=== PATIENT | female | born 1935 | race Caucasian/White ===

== ENCOUNTER 2016-06-13 17:14 | Emergency (ER) ==
[2016-06-13 17:21] VITALS: BP 110/62; TEMP 98.8; BMI 24.0
[2016-06-13 18:04] LABS: ALBUMIN 3.2 g/dL (3.4-5.0); ALBUMIN/GLOBULIN RATIO 0.8; ANION GAP 19.7; BILIRUBIN,TOTAL 0.46 mg/dL (0.00-1.20); BUN/CREATININE RATIO 21.33; CALCIUM 9.2 mg/dL (8.2-10.2); CREATININE 2.39 mg/dL (0.60-1.30); POTASSIUM 4.7 mmol/L (3.5-5.10); TOTAL PROTEIN 7.2 g/dL (5.8-8.1)
[2016-06-13] MEDS ORDERED: HUMULIN R SUBCUT PRN (18:19)
--- NOTE | 2016-06-13 18:23 | ED.PDOC ---
General ED Provider: Dr. PATTI BAUTISTA Chief Complaint: Diabetes Stated Complaint: diabetes Time Seen by Physician: 17:17 (high blood sugar at [place]) Mode of Arrival: Ambulance Information Source: Patient, EMT, Assisted Living Exam Limitations: No limitations Primary Care Provider: MDAHAV TSAI Nursing and Triage Documentation Reviewed and Agree: Yes (on out pt steroids) Endocrine Complaint Exam - Diabetic Complication Complaint/Exam Symptoms Are: Still present Timing: Constant Initial Severity: Mild Current Severity: Mild Character: Alert Aggravating: Reports: Medication change Associated Signs and Symptoms: Denies: Decreased LOC, Polydipsia, Polyuria, Polyphagia, Weight loss, Abdominal pain, Nausea, Vomiting, Fever, Diaphoresis, Fruity breath Cardiac Risk Factors: Reports: Hypertension CVA Risk Factors: Reports: Hypertension Serious Bacterial Infection Risk Factors: Reports: None Related Surgical History: Reports: None Acetone on Breath: No Dry Mucous Membranes: No Kussmaul Respirations: No Meningeal Signs: No Focal Weakness: None Focal Sensory Loss: None Gait: Normal Nystagmus Present: No Gag Reflex Present: Yes Review of Systems - Review Of Systems Constitutional: Reports: No symptoms Eyes: Reports: No symptoms Ears, Nose, Mouth, Throat: Reports: No symptoms Respiratory: Reports: No symptoms Cardiac: Reports: No symptoms GI: Reports: No symptoms : Reports: No symptoms Musculoskeletal: Reports: No symptoms Skin: Reports: No symptoms Neurological: Reports: No symptoms Endocrine: Reports: No symptoms Hematologic/Lymphatic: Reports: No symptoms All Other Systems: Reviewed and Negative Past Medical History - Past Medical History Endocrine: Reports: DM 2, Hypothyroid Cardiovascular: Reports: Hypertension Respiratory: Reports: None Hematological: Reports: None Gastrointestinal: Reports: None Genitourinary: Reports: None Neuro/Psych: Reports: Anxiety Musculoskeletal: Reports: None Cancer: Reports: None Last Menstrual Period: n/a - Surgical History General Surgical History: Reports: Appendectomy, Back Surgery (x 2) - Family History Family History: Reports: Unknown - Social History Smoking Status: Never smoker Hx Substance Use: No Alcohol Screening: None Physical Exam - Physical Exam Appearance: Well-appearing, No pain distress, Well-nourished Eyes: JUAN CARLOS, EOMI, Conjunctiva clear ENT: Ears normal, Nose normal, Oropharynx normal Respiratory: Airway patent, Breath sounds clear, Breath sounds equal, Respirations nonlabored Cardiovascular: RRR, Pulses normal, No rub, No murmur GI/: Soft, Nontender, No masses, Bowel sounds normal, No Organomegaly Musculoskeletal: Normal strength, ROM intact, No edema, No calf tenderness Skin: Warm, Dry, Normal color Neurological: Sensation intact, Motor intact, Reflexes intact, Cranial nerves intact, Alert, Oriented Psychiatric: Affect appropriate, Mood appropriate Critical Care Note - Critical Care Note Total Time (mins): 0 Course - Course Hematology/Chemistry: 06/13/16 17:42 Orders, Labs, Meds: Lab Review 06/13/16 17:42 Sodium 138 Potassium 4.7 Chloride 101 Carbon Dioxide 22 L Anion Gap 19.7 BUN 51 H Creatinine 2.39 H Estimated GFR (MDRD) 19.00 BUN/Creatinine Ratio 21.33 Glucose 475 H Calcium 9.2 Total Bilirubin 0.46 AST 19 ALT 17 Alkaline Phosphatase 56 Total Protein 7.2 Albumin 3.2 L Globulin 4.0 Albumin/Globulin Ratio 0.80 Orders Category Date Time Status COMPREHENSIVE METABOLIC PANEL Stat LAB 06/13/16 17:42 Completed Insulin Regular, Human [Humulin R] MEDS 06/13/16 18:19 Ordered 5 unit SUBCUT PRN PRN Medications Generic Name Dose Route Start Last Admin Trade Name Freq PRN Reason Stop Dose Admin Insulin Human Regular 5 unit 06/13/16 18:19 Humulin R SUBCUT PRN PRN Hyperglycemica Vital Signs: Temp Pulse Resp BP Pulse Ox 06/13/16 17:17 98.8 F 76 16 110/62 95 Departure - Departure Time of Disposition: 18:22 Disposition: HOME SELF-CARE Discharge Problem: Hyperglycemia Instructions: Diabetic Hyperglycemia (ED) Condition: Good Pt referred to PMD for follow-up: No Additional Instructions: Please call your Family Physician as soon as possible to schedule a follow-up appointment. Allergies/Adverse Reactions: Allergies No Known Allergies Allergy (Unverified 12/02/12 10:30) Home Medications: Ambulatory Orders Aspirin [Aspirin Chewable] 81 mg PO DAILY 12/02/12 Esomeprazole Magnesium [Nexium] 40 mg PO DAILY 12/02/12 Ferrous Sulfate [Iron] 325 mg PO DAILY 12/02/12 Multivitamin 1 cap PO DAILY 12/02/12 Sitagliptin Phos/Metformin HCl [Janumet 50-1,000 mg Tablet] 50 - 1,000 mg PO BID 12/02/12 [place]-3S/Dha/Epa/Fish Oil/D3 [Fish Yrb-Auzmq-2-Vit D Softgel] 1 each PO BS 12/03 Canagliflozin [Invokana] 100 mg PO AC 11/06/15 Levothyroxine Sodium [Synthroid] 75 mcg PO QDAC 11/06/15 Rosuvastatin Calcium [Crestor] 10 mg PO BEDTIME 11/06/15 Vit C/Vit E/Lutein/Min/[place]-3 [Ocuvite Softgel] 1 tab PO DAILY 11/06/15 Cephalexin [Keflex] 500 mg PO Q12HR 06/13/16 Glucosamine HCl/Ch[place]r [place]anca A Na [Osteo Bi-Flex Caplet] 1 each PO DAILY 06/13/16 Olmesartan/Hydrochlorothiazide [Benicar Hct 40-25 mg Tablet] 1 each PO DAILY 03/20 Prednisone 10 mg PO BIDWM 06/13/16
[2016-06-13] MEDS ORDERED: HUMULIN R ONE (18:55)
== END 2016-06-13 19:06 | disposition home or self-care (01) ==
LOC: ED 17:14
DX: E11.65 Type 2 diabetes mellitus with hyperglycemia (principal); I10 Essential (primary) hypertension; E03.9 Hypothyroidism, unspecified; Z79.899 Other long term (current) drug therapy
CPT/HCPCS: 36415; 80053; 96372; 99282

== ENCOUNTER 2016-06-22 11:56 | Outpatient (CLI) ==
[2012-12-03 08:34] VITALS: TEMP 97.2
--- NOTE | 2016-06-22 12:26 | DI ---
EXAM: Chest two views HISTORY: Acute bronchitis COMPARISON: 07/19/1928 TECHNIQUE: Two views of the chest were performed FINDINGS: The lungs are clear, excepting for granulomatous calcification. There is no pleural effu gerardo or pneumothorax. The heart is normal in size. The mediastinal contour is normal, noting ather osclerosis. There are no acute abnormalities of the bones. IMPRESSION: No acute cardiopulmonary process.
== END 2016-06-22 11:57 | disposition home or self-care (01) ==
LOC: RAD 11:56
PROVIDERS: ATTEND Emergency Medicine
DX: J20.9 Acute bronchitis, unspecified (principal)

== ENCOUNTER 2016-08-31 14:19 | Outpatient (CLI) ==
[2012-12-03 08:34] VITALS: TEMP 97.2
[2016-08-31 14:45] LABS: BASOPHILS # (AUTO) 0.1 K/uL (0-0.2); EOSINOPHILS # (AUTO) 0.2 K/ul (0.0-0.7); EOSINOPHILS % (AUTO) 2.5 % (0.0-7.0); HEMATOCRIT 38.4 % (37.0-47.0); HEMOGLOBIN 12.1 g/dl (12.0-16.0); IMMATURE GRANULOCYTE % (AUTO) 0.3 % (0.0-5.0); LYMPHOCYTES # (AUTO) 2.4 K/uL (0.60-3.4); LYMPHOCYTES % (AUTO) 35.5 (10.0-50.0); MEAN CORPUSCULAR HEMOGLOBIN 29.3 pg (27.0-31.0); MEAN CORPUSCULAR HGB CONC 31.5 (31.8-35.4); MONOCYTES # (AUTO) 0.7 K/uL (0.4-2.0); MONOCYTES % (AUTO) 9.9 (0-10); NEUTROPHILS # (AUTO) 3.5 K/ul (2.0-6.9); NEUTROPHILS % (AUTO) 50.8; PLATELET COUNT 188 10^3/uL (140-440); RED BLOOD COUNT 4.13 10^6/ul (4.20-5.40); WHITE BLOOD COUNT 6.79 K/ul (4.6-10.2)
[2016-08-31 14:48] LABS: BILIRUBIN,URINE Negative (NEGATIVE); KETONES,URINE Negative (NEGATIVE); LEUKOCYTE ESTERASE ,URINE Negative (NEGATIVE); NITRITE,URINE Negative (NEGATIVE); PROTEIN,URINE Negative (NEGATIVE); URINE, BLOOD Trace-intact (NEGATIVE)
[2016-08-31 14:50] LABS: ADD URINE MICROSCOPIC YES
[2016-08-31 15:02] LABS: ALBUMIN 3.6 g/dL (3.4-5.0); ALBUMIN/GLOBULIN RATIO 0.97; ANION GAP 14.3; BILIRUBIN,TOTAL 0.49 mg/dL (0.00-1.20); BUN/CREATININE RATIO 22.94; CALCIUM 10.1 mg/dL (8.2-10.2); CREATININE 1.7 mg/dL (0.60-1.30); POTASSIUM 4.3 mmol/L (3.5-5.10); TOTAL PROTEIN 7.3 g/dL (5.8-8.1)
== END 2016-08-31 14:20 | disposition home or self-care (01) ==
LOC: LAB 14:19
PROVIDERS: ATTEND Emergency Medicine
DX: R35.0 Frequency of micturition (principal); N18.9 Chronic kidney disease, unspecified; E11.9 Type 2 diabetes mellitus without complications
CPT/HCPCS: 36415; 80053; 81001; 85025